=== PATIENT | male | born 1980 | race Caucasian/White ===

== ENCOUNTER 2017-02-08 10:49 | Emergency (ER) | payer OTHER | END 2017-02-08 13:18 | disposition home or self-care (01) | LOC: FER 10:49 | DX: S61.011A Laceration without foreign body of right thumb without damage to nail, initial encounter (principal); S20.212A Contusion of left front wall of thorax, initial encounter; F17.229 Nicotine dependence, chewing tobacco, with unspecified nicotine-induced disorders; Z88.6 Allergy status to analgesic agent; Z23 Encounter for immunization; W26.8XXA Contact with other sharp object(s), not elsewhere classified, initial encounter | CPT/HCPCS: 71020; 90471; 90715; J1885 ==